=== PATIENT | male | born 1950 | race Caucasian/White ===

== ENCOUNTER 2023-11-08 12:04 | Emergency (ER) | payer MEDICARE, SELFPAY ==
[2023-11-08 12:10] VITALS: BP 172/92; PULSE 73; TEMP 36.7; O2SAT 94; BMI 31.3
--- NOTE | 2023-11-08 12:16 | ED_ITS ---
HPI - Wound/Laceration General Chief Complaint: Wound/Laceration Stated Complaint: FACIAL WOUND Time Seen by Provider: 11/08/23 12:08 Source: patient Mode of arrival: walk-in Limitations: no limitations History of Present Illness HPI narrative: 73-year-old male presents to the emergency department for a puncture wound to his face. This morning he was working with metal wiring and a piece that came up and punctured his left jaw, lateral to the mouth. He went to the urgent care center to get a tetanus shot but they told him they do not put stitches in the face and told him to come here. He does not think he needs stitches. No other injuries were sustained and he cannot recall the last time he had a tetanus shot, it has been a long time. He states that there is no chance that a piece of the metal broke off. Related Data Allergies Allergy/AdvReac Type Severity Reaction Status Date / Time No Known Drug Allergies Allergy Verified 11/08/23 12:14 Review of Systems ROS Narrative A ten point review of systems is negative except as noted above. Exam Narrative Exam Narrative: Nurses note and vital signs reviewed and patient is not hypoxic. General: The patient appears well and in no apparent distress. Patient is resting comfortably on cart. Skin: Warm, dry, no pallor noted. There is no rash noted. Head: Normocephalic, he has a puncture dez on his left jaw lateral and inferior to the corner of his mouth. There is no laceration. It is not a through and through wound. Eye: Normal conjunctiva, no drainage Ears, Nose, Mouth, and Throat: oral mucosa is moist. Nares patent. Cardiovascular: Regular Rate and Rhythm Respiratory: Patient is in no distress, no accessory muscle use Back: non-tender GI: Soft and nontender Musculoskeletal: All joints have full range of motion Neurological: Awake and alert Psychiatric: Cooperative Constitutional Vital Signs, click to edit/add: Last Vital Signs Temp 98.1 F 11/08/23 12:10 Pulse 73 11/08/23 12:10 Resp 16 11/08/23 12:10 BP 172/92 H 11/08/23 12:10 Pulse Ox 94 L 11/08/23 12:10 O2 Del Method Room Air 11/08/23 12:10 Course Vital Signs Vital signs: Vital Signs Temperature 98.1 F 11/08/23 12:10 Pulse Rate 73 11/08/23 12:10 Respiratory Rate 16 11/08/23 12:10 Blood Pressure 172/92 H 11/08/23 12:10 Pulse Oximetry 94 L 11/08/23 12:10 Oxygen Delivery Method Room Air 11/08/23 12:10 Temperature 98.1 F 11/08/23 12:10 Pulse Rate 73 11/08/23 12:10 Respiratory Rate 16 11/08/23 12:10 Blood Pressure 172/92 H 11/08/23 12:10 Pulse Oximetry 94 L 11/08/23 12:10 Oxygen Delivery Method Room Air 11/08/23 12:10 MDM - Wound/Laceration MDM Narrative Medical decision making narrative: Sutures are not indicated. Tetanus status was updated. Treatment diagnosis and follow-up were discussed with the patient Differential Diagnosis Differential diagnosis: Likely laceration, avulsion of skin and other (Puncture wound) Discharge Plan Discharge Stand Alone Forms: Portal Instructions Chief Complaint: Wound/Laceration Clinical Impression: Puncture wound Patient Disposition: Home, Self-Care Time of Disposition Decision: 12:16 Condition: Good Mode of Transportation: Private Vehicle Print Language: Vietnamese Instructions: Puncture Wound (ED)
[2023-11-08] MEDS: ADACEL DIPH,PERTUSS(ACELL),TET VAC/PF 0.5 ML ADULT SYRINGE IM (12:22)
[2023-11-08 12:29] VITALS: BP 162/88; PULSE 78; TEMP 36.7; O2SAT 94
== END 2023-11-08 12:30 | disposition home or self-care (01) ==
LOC: ER 12:36
PROVIDERS: Emergency Provider Emergency Medicine
DX: S01.83XA Puncture wound without foreign body of other part of head, initial encounter (principal); W26.8XXA Contact with other sharp object(s), not elsewhere classified, initial encounter; Z23 Encounter for immunization
CPT/HCPCS: 90471; 90715; 99284

== ENCOUNTER 2024-12-07 07:11 | Outpatient (OUT) | payer OTHER, SELFPAY ==
--- OUTSIDE RECORDS SUMMARY | 2024-12-07 07:17 | XMS_ITS | Patient Health Record ---
Author Organization [facility] Address [address] [place], [place] [address]Judith [place], [place] [id number] Care Team Providers Care Acute Specialist Name Role Phone JusticeThomas hargrove Unavailable [phone] Allergies No Known Allergies Reason For Referral No Information Social History Tobacco Use: Social History Observation Description Date Details (start date - stop date) Never Smoker NA - NA Sex Assigned At : Social History Observation Description Sex Assigned At Male Tobacco Control (Standard) Question Answer Notes Tobacco use: Nonsmoker Problems Problem Type SNOMED Code ICD Code Onset Dates Problem Status W/U Status Risk Notes Problem BMI 30+ - obesity (944597901) BMI 32.0-32.9,a dult (Z68.32) Active confirmed Vital Signs Heart Rate 58 /min 11/23/2024 Height-cm 170.18 cm 11/23/2024 Blood pressure diastolic 93 mm Hg 11/23/2024 Weight-kg 95.26 kg 11/23/2024 Height 5'7 in 11/23/2024 Blood pressure systolic 161 mm Hg 11/23/2024 Weight 210 lbs 11/23/2024 BMI 32.89 kg/m2 11/23/2024 Encounters Encounter Location Date Provider Diagnosis [facility] [address], [place] [id number] 11/15/2024 Thomas Collins Encounter for scre ening for dental disorders Z13.84 ; Dental caries into dentine K02.62 and Encounter for dental examination and cleaning with abnormal findings Z01.21 [facility] [address], [place] [id number] 11/23/2024 Thomas Collins BMI 32.0-32.9,adul t Z68.32 ; Encounter for dental examination and cleaning with abnormal findings Z01.21 ; Dietary counseling Z71.3 and Exercise counseling Z71.82 Assessments Encounter Date Diagnosis (ICD Code) Assessment Notes Treatment Notes Treatment Clinical Notes Section Notes 11/15/2024 Encounter for screening for dental disorders (ICD-10 - Z13.84) 11/23/2024 BMI 32.0-32.9,adult (ICD-10 - Z68.32) 11/15/2024 Dental caries into dentine (ICD-10 - K02.62) 11/23/2024 Encounter for dental examination and cleaning with abnormal findings (ICD-10 - Z01.21) 11/23/2024 Dietary counseling (ICD-10 - Z71.3) 11/15/2024 Encounter for dental examination and cleaning with abnormal findings (ICD-10 - Z01.21) 11/23/2024 Exercise counseling (ICD-10 - Z71.82) Plan Of Treatment Next Appt Details Provider Name:Thomas Collins , 01/29/2025 01:30:00 PM, [address] [place] [address], [phone], Provider Name:Thomas Collins , 06/18/2025 08:45:00 AM, [address] [place] [address], [id number], Insurance Providers Payer Name Payer Address Payer Phone Subscriber Number Group Number Insured Name Patient Relationship to Insured Coverage Start Date Coverage End Date [facility] [address] [place] [address] [id number] Genaro Mendoza Self - patient is the insured
--- OUTSIDE RECORDS SUMMARY | 2024-12-07 07:17 | XMS_ITS | Encounter Summary ---
Author Organization [employer] [facility] tem Address [facility] [id number] [address] [place] [address] Care Team Providers Care Metallurgical Engineering Teacher Name Role Phone Luis Alberto Yañez DO Primary Care Provider [phone] Reason for Visit * Reason Onset Date Comments Med Refill 10/26/2021 Genaro called to day to get refill of his meloxicam. He is staying at his Mom's and wants it to go to the [facility] [address] [facility]. It is the second pharmacy in his chart. Thank you. Encounter Details Date Type Department Care Team (Late st Contact Info) Description 10/26/2021 Telephone Regenerative Medicine Katia Vogel [address] [phone] Dianelys Solis MD [address], [address] [address] Med Refill (Genaro called today to get refill of his meloxicam. He is staying at his Mom's and wants it to go to the [facility] [address] [facility]. It is the second pharmacy in his chart. Thank you.) Social History Tobacco Use Types Packs/Day Years Used Date Smoking Tobacco: Former Smokeless Tobacco: Former Alcohol Use Standard Drinks/Week Comments Not Currently 0 (1 standard drink = 0.6 oz pur e alcohol) Social Social Connection and Isolation Panel [NHANES] A nswer Date Recorded In a typical week, how many times do you talk on the phone with family, friends, or neighbors? Three times a week 07/19/2021 How often do you get togethe r with friends or relatives? Patient declined 07/19/2021 Attends Confucianism Services Not on file 07/19 Do you belong to any clubs o r organizations such as anglican groups, unions, fraternal or athletic groups, or school groups? Yes 07/19/2021 Attends Club or Organization Meetings Not on shayne e 07/19/2021 Marital Status Not on file 07/19/2021 AUDIT-C Answer Date Recorded Q1: How often do you have a drink containing alc ohol? Patient declined 07/19/2021 Q2: How many drinks containi ng alcohol do you have on a typical day when you are drinking? Patient declined 07/19/2021 Q3: How often do you have si x or more drinks on one occasion? Patient declined 07/19/2021 PHQ-2 Answer Date Recorded Total Score 10 07/19/2021 Exercise Vital Sign Answer Date Recorde d On average, how many days pe r week do you engage in moderate to strenuous exercise (like a brisk walk)? 3 days Minutes of Exercise per Session Not on file 07/19/2021 Childcare Answer Date Recorded Childcare Unknown 10/17/2018 Employment Answer Date Recorded Employment Unknown 10/17/2018 Purpose - Life Answer Date Recorded I have a purpose and direction in my life. Lashellith er Agree nor Disagree 07/19/2021 Sex and Gender Information Value Date Recorded Sex Assigned at Not on file Legal Sex Male 11:23 AM EDT Gender Identity Not on file Sexual Orientation Not on file documented as of this encounter Miscellaneous Notes * Telephone Encounter - Dianelys Solis MD - 10/26/2021 12:40 PM EDT Refill sent. DIANELYS SOLIS MD documented in this encounter Plan of Treatment Not on file documented as of this encounter Visit Diagnoses Not on filedocumented in this encounter Additional Health Concerns Assessment Noted Time PHQ-9 Depression Total Score: 10 022 8:14 PM EDT documented as of this encounter Care Teams Metallurgical Engineering Teacher Relationship Specialty Start Date End Date Luis Alberto Yañez DO PCP - General Family Medicine 06/11/16 07/09/24 documented as of this encounter
--- OUTSIDE RECORDS SUMMARY | 2024-12-07 07:17 | XMS_ITS | Clinical Summary ---
Author Organization [facility] Address [facility] [id number] [address] [place] [address] Care Team Providers Care Insurance Representative Name Role Phone Unavailable Primary Care Provider Unavailabl e Allergies No known active allergies Medications ascorbic acid (VITAMIN C) 500 mg tablet Take 1 tablet (500 mg total) by mouth in the morning. Active UNABLE TO FIND Take by mouth in the morning. Balance of nature-fruit and vegetable supplement. Active calcium citrate (CALCITRATE) 200 mg (950 mg) tablet Take 1 tablet (200 mg total) by mouth in the morning. For bone health. Active UNABLE TO FIND Take by mouth in the morning. Immuno 150 basic minerals needs for health. Active Active Problems Problem Noted Date Diagnosed Date Primary osteoarthritis of left knee 05/20/2023 Benign prostatic hyperplasia 06/15/2016 Encounters Date Type Department Care Team Description 11/07/2024 11:15 AM EDT Office Visit [facility] [address] [place] [address] Re Santiago PA Fatigue, unspecified type (Primary Dx) 11/07/2024 Travel from Last 3 Months Immunizations Immunization Administration Dates Next Due COVID-19, mRNA, LNP-S, PF, 100mcg/0.5mL Dose 08/01/2020,07/04/2020 DTaP 10/14/2017 Influenza, High-dose, Quadrivalent 08/16/2023 Pneumococcal Conjugate 13-Valent 10/17/2017 Pneumococcal Polysaccharide 11/06/2019,0 11/27/2013(Deferred: Other - DEFERRED) Tdap 10/14/2017 Zoster Vaccine Recombinant 10/22/2023,07/29/2023 Family History Medical History Relation Name Comments Arthritis Brother Arthritis Mother BOTH KNEES REPL ACED Diabetes Mother prediabetes Heart disease Mother Anesthesia problems Neg Hx Relation Name Status Comments Brother Father Mother fro m complications of UTI Social History Tobacco Use Types Packs/Day Years Used Date Smoking Tobacco: Former Cigarettes Smokeless Tobacco: Former Chew Tobacco Cessation:Counseling Given: Yes Comments:Quit 30+ years ago Alcohol Use Standard Drinks/Week Comments Yes 0 (1 standard drink = 0.6 oz pur e alcohol) 2-5 per week according to A Social Connection and Isolation Panel [NHANES] A nswer Date Recorded In a typical week, how many times do you talk on the phone with family, friends, or neighbors? Three times a week 07/19/2021 How often do you get togethe r with friends or relatives? Patient declined 07/19/2021 Attends Roman Catholic Services Not on file 07/19 Do you belong to any clubs o r organizations such as jain groups, unions, fraternal or athletic groups, or [...] drinks on one occasion? Patient declined 07/19/2021 Overall Financial Resource Strain (CARDIA) Answe r Date Recorded How hard is it for you to pa y for the very basics like food, housing, medical care, and heating? Not hard at all 12/01/2023 PHQ-2 Answer Date Recorded Total Score 0 12/07/2023 Exercise Vital Sign Answer Date Recorde d On average, how many days pe r week do you engage in moderate to strenuous exercise (like a brisk walk)? 3 days Minutes of Exercise per Session Not on file 07/19/2021 PRAPARE - Transportation Answer Date Re corded In the past 12 months, has l ack of transportation kept you from medical appointments or from getting medications? No 11/07 In the past 12 months, has l ack of transportation kept you from meetings, work, or from getting things needed for daily living? No 12/01/2023 Housing Instability Answer Date Recorde d Are you worried or concerned that in the next two months you may not have stable housing that you own, rent or stay in as a part of a household? No 12/01/2023 Childcare Answer Date Recorded Childcare Unknown 10/17/2018 Employment Answer Date Recorded Employment Unknown 10/17/2018 Hunger Screening Answer Date Recorded Within the past 12 months we worried whether our food would run out before we got money to buy more. Never True 11/07/2024 Within the past 12 months th e food we bought just didn't last and we didn't have money to get more. Never True 11/07/2024 Purpose - Life Answer Date Recorded I have a purpose and direction in my life. Figueroa tee Agree nor Disagree 07/19/2021 Sex and Gender Information Value Date Recorded Sex Assigned at Not on file Legal Sex Male 11:23 AM EDT Gender Identity Not on file Sexual Orientation Not on file Last Filed Vital Signs Vital Sign Reading Time Taken Comments Blood Pressure 143/89 11/07/2024 11:30 AM EDT Pulse 61 11/07/2024 11:29 AM EDT Temperature 36.1 C (97 F) 11/07/2024 11:29 AM EDT Respiratory Rate 16 11/07/2024 11:29 AM EDT Oxygen Saturation 95% 11/07/2024 11:29 AM EDT Inhaled Oxygen Concentration - - Weight 97.5 kg (215 lb) 11/07/2024 11:29 AM EDT Height 170.2 cm (5' 7 ) 12/07/2023 10:16 AM EDT Body Mass Index 33.67 12/07/2023 10:16 AM EDT Plan of Treatment Health Maintenance Due Date Last Done Comments COVID-19 Vaccine (2023-06 5 season) 2024 07/29/2021, 08/01/2020, 07/04/2020 Fall Risk Screening 11/30/2024 12/01/2023 Medicare Annual Wellness Visit 12/04/2024 0 12/05/2023, 11/30/2022, 11/24/2021, Additional history exists Depression Screening 12/06/2024 12/07/2023 Influenza Vaccine 01/07/2025 08/16/2023 Tobacco Screening 11/07/2025 11/07/2024 DTaP,Tdap and Td Vaccines (3 - Td or Tdap) 10/15/2027 10/14/2017, 10/14/2017 Colonoscopy Discontinued 11/30/1999 Abdominal Aortic Aneurysm (A AA) Screen Completed 10/20/2017 Zoster (Shingles) Vaccine Completed 10/22/2023, Goals Goal Patient Goal Type Associated Problems Recent Progress Patient-Stated? Author improve mobility General Yes Teresa Avila, RN Note: Evaluation of progress towards goal: Maximize work with PT at discharge to strengthen L knee Medical Devices Implanted Type Area Financial Compliance Officer Device Identifier Shelf Expiration Date Model / Serial / Lot Cement Bn Bio 40gm Rpl [id number] - [id number] Implanted:Qt y: 1 on 07/05/2023 by Valente Carlos MD at [facility] Cement Left: Knee [employer] [id number] 11/05/2025 [id number] / / [id number] Cement Bn Bio 40gm Rpl [id number] - [id number] Implanted:Qt y: 1 on 07/05/2023 by Valente Carlos MD at [facility] Cement Left: Knee [employer] [id number] 11/05/2025 [id number] / / [id number] Component Ptlr 38mm Personcleo Edgardoflorinda Kn Strl Lf - [id number] Implanted:Qt y: 1 on 07/05/2023 by Valente Carlos MD at [facility] Orthopedic Implant Left: Knee [employer] [id number] 04/04/2028 [id number] / / [id number] Component Fem 9 Std Kn Lt Crcte Rtn Cmnt Persona Cocr - [id number] Implanted:Qt y: 1 on 07/05/2023 by Valente Carlos MD at [facility] Orthopedic Implant Left: Knee [employer] [id number] 02/26/2033 [id number] / / [id number] Insert Artc 8-11 G-H 10mm Kn Lt Vivacit-E Persona Strl - [id number] Implanted:Qt y: 1 on 07/05/2023 by Valente Carlos MD at [facility] Orthopedic Implant Left: Knee [employer] [id number] 04/11/2028 [id number] / / [id number] Baseplate Tib 5d G Kn Lt Cmnt Stm Persona Tiv Strl - [id number] Implanted:Qt y: 1 on 07/05/2023 by Valente Carlos MD at [facility] Plate Left: Knee [employer] [id number] 03/07/2033 [id number] / / [id number] Explanted Type Area Financial Compliance Officer Device Identifier Shelf Expiration Date Model / Serial / Lot Screw Bn 25mm 2.5mm F Hex Kn Persona - [id number] Explanted:Qty: 2 on 07/05/2023 by Valente Carlos MD at [facility] Screw Left: Knee [employer] [id number] 04/23/2033 [id number] / / [id number] Procedures Procedure Name Priority Date/Time Associated Diagnosis Comments PM AMB POCT GLUCOSE Routine 11/07/2024 4 :47 PM EDT Fatigue, unspecified type VASC AAA SCREENING Routine 10/20/2017 10 :00 AM EDT Screening for abdominal aortic aneurysm from Last 3 Months or Most Recently Relevant to Health Maintenance Results * POCT Glucose (11/07/2024 4:47 PM EDT) Bedside glucose 98 65 - 99 mg/dL MANUALLY TRANSCRIBED RESULTS Blood 11/07/2024 4:47 PM EDT Re LAI POINT OF CARE TEST ORDERABLES F inal Result MANUALLY TRANSCRIBED RESULTS * Vas AAA Screening (10/20/2017 10:00 AM EDT) Anatomical Region Laterality Modality Vascular N/A Ultrasound 10/20/2017 10:0 6 AM EDT Narrative 10/20/2017 6:51 PM EDT Aorta: Limited-AAA screening exam: Maximum aortic diameter is: 2.6 cm. Recommendations: Any questions prior to finalization, please call the reading physician during normal business hours at the phone number beside their name. Procedure Note Dieter Joseph MD - 10/20/2017 Aorta: Limited-AAA screening exam: Maximum aortic diameter is: 2.6 cm. Recommendations: Any questions prior to finalization, please call thereading physician during normal business hours at the phone number besidetheir name. Luis Alberto Yañez DO CV VASCULAR ORDERABLES Final Result from Last 3 Months or Most Recently Relevant to Health Maintenance [place] [address] [place] [address] MEDICARE Advance Directives Documents on File Type Date Recorded Patient Explosive Ordnance Disposal Manager Expl anation Living Will 12/07/2022 10:47 AM Living Maxwell l 09/16/22 Durable Power of Director Operations 12/07/2022 10:45 AM POA 09/16/22
--- OUTSIDE RECORDS SUMMARY | 2024-12-07 07:17 | XMS_ITS | Encounter Summary ---
Author Organization [facility] tem Address [id number] [address] [place] [address] Care Team Providers Care Fisher Clam Name Role Phone Luis Alberto Yañez DO Primary Care Provider [phone] Encounter Details Date Type Department Care Team (Late st Contact Info) Description 03/19/2020 Orders Only [facility] Family Medicine [address] [place] [address] [address] [place] [id number] Ref Prov, [place] [address] Social History Tobacco Use Types Packs/Day Years Used Date Smoking Tobacco: Former Smokeless Tobacco: Former Alcohol Use Standard Drinks/Week Comments Not Currently 0 (1 standard drink = 0.6 oz pur e alcohol) Social PHQ-2 Answer Date Recorded Total Score 1 11/06/2019 Childcare Answer Date Recorded Childcare Unknown 10/17/2018 Employment Answer Date Recorded Employment Unknown 10/17/2018 Sex and Gender Information Value Date Recorded Sex Assigned at Not on file Legal Sex Male 11:23 AM EDT Gender Identity Not on file Sexual Orientation Not on file documented as of this encounter Plan of Treatment Not on file documented as of this encounter Procedures Procedure Name Priority Date/Time Associated Diagnosis Comments SARS COV 2 (COVID-19) Routine 03/05/2020 documented in this encounter Results * SARS COV 2 (COVID-19) (03/05/2020) EXTERNAL SARS COV 2 Negative Negative MANUALLY TRANSCRIBED RESULTS 03/05/2020 us Not In System Ref Prov MICROBIOLOGY - GENERAL OR DERABLES Final Result MANUALLY TRANSCRIBED RESULTS documented in this encounter Visit Diagnoses Not on filedocumented in this encounter Additional Health Concerns Assessment Noted Time PHQ-9 Depression Total Score: 1 11/06/19 20 10:00 AM EDT documented as of this encounter Care Teams Fisher Clam Relationship Specialty Start Date End Date Luis Alberto Yañez DO PCP - General Family Medicine 06/11/16 07/09/24 documented as of this encounter
--- OUTSIDE RECORDS SUMMARY | 2024-12-07 07:17 | XMS_ITS | Encounter Summary ---
Author Organization [facility] tem Address [facility] [place] [id number] [address] [place] [address] Care Team Providers Care Sample Maker Hand Name Role Phone Luis Alberto Yañez DO Primary Care Provider [phone] Encounter Details Date Type Department Care Team (Late st Contact Info) Description 03/15/2022 Orders Only [facility] [address] [place] [phone] Gosbarby, Milly, TELEVISION REPAIR TEACHER Atypical mole Social History Tobacco Use Types Packs/Day Years Used Date Smoking Tobacco: Former Smokeless Tobacco: Former Alcohol Use Standard Drinks/Week Comments Not Currently 0 (1 standard drink = 0.6 oz pure alcohol) 2-5 drinks per week according to [facility] Social Connection and Isolation Panel [NHANES] A nswer Date Recorded In a typical week, how many times do you talk on the phone with family, friends, or neighbors? Three times a week 07/19/2021 How often do you get togethe r with friends or relatives? Patient declined 07/19/2021 Attends Buddhist Services Not on file 07/19 Do you belong to any clubs o r organizations such as muslim groups, unions, fraternal or athletic groups, or [...] PHQ-2 Answer Date Recorded Total Score 10 11/24/2021 Exercise Vital Sign Answer Date Recorde d [...] a purpose and direction in my life. Neith er Agree nor Disagree 07/19/2021 Sex and Gender Information Value Date Recorded Sex Assigned at Not on file Legal Sex Male 11:23 AM EDT Gender Identity Not on file Sexual Orientation Not on file documented as of this encounter Plan of Treatment Not on file documented as of this encounter Procedures Procedure Name Priority Date/Time Associated Diagnosis Comments AMB REFERRAL TO DERMATOLOGY Routine 03/05/2022 Atypical mole documented in this encounter Results * Ambulatory referral to Dermatology (03/05/2022) 03/05/2022 us Halle Horta DRYERMAN/WOMAN-MENSWEAR SALESPERSON OUTPATIENT REFERRAL ORD ERABLES Final Result MANUALLY TRANSCRIBED RESULTS documented in this encounter Visit Diagnoses Diagnosis Atypical mole Benign neoplasm of skin, site unspecified documented in this encounter Additional Health Concerns Assessment Noted Time PHQ-9 Depression Total Score: 10 022 10:00 AM EDT documented as of this encounter Care Teams Sample Maker Hand Relationship Specialty Start Date End Date Luis Alberto Yañez DO PCP - General Family Medicine 06/11/16 07/09/24 documented as of this encounter
--- OUTSIDE RECORDS SUMMARY | 2024-12-07 07:17 | XMS_ITS | Encounter Summary ---
[facility] [id number] [address] [place] [address] Care Team Providers Care Key Account Director Name Role Phone Luis Alberto Yañez Alisson YATES Primary Care Provider [phone] Encounter Details Date Type Department Care Team (Late st Contact Info) Description 10/26/2021 [facility] [address] [place] [address] Folra Weathers CMA Social History Tobacco Use Types Packs/Day Years [...] friends or relatives? Patient declined 07/19/2021 Attends Congregational Services Not on file 07/19 Do you belong to any clubs o r organizations such as anabaptist groups, unions, fraternal or athletic groups, or [...] documented as of this encounter Care Teams Key Account Director Relationship Specialty Start Date End Date Luis Alberto Yañez DO PCP - General Family Medicine 06/11/16 07/09/24 documented as of this encounter
[2024-12-07 07:30] LABS: Hematocrit 46.9 % (42.0-54.0); Hemoglobin 15.8 g/dL (14.0-18.0); Immature Granulocytes Abs Auto 0.03 10^3/uL (0.00-0.03); Immature Granulocytes Pct Auto 0.4 % (0.0-0.5); Lymphocytes Absolute Auto 3.2 10^3/uL (1.2-3.8); Mean Corpuscular HGB Conc 33.7 g/dL (29.9-35.2); Mean Corpuscular Hemoglobin 31.2 pg (25.9-34.0); Mean Corpuscular Volume 92.5 fL (80.0-94.0); Platelet Count 271 10^3/uL (150-450); Red Blood Count 5.07 10^6/uL (4.70-6.10); White Blood Count 8.2 10^3/uL (4.0-11.0)
[2024-12-07 07:59] LABS: Alanine Aminotransferase 37 U/L (16-63); Albumin Globulin Ratio 1.1; Albumin Level 4.2 g/dL (3.4-5.0); Alkaline Phosphatase 62 U/L (46-116); Anion Gap 11.7; Aspartate Amino Transferase 23 U/L (15-37); Blood Urea Nitrogen 18.0 mg/dL (7.0-18.0); Calcium 9.6 mg/dL (8.5-10.1); Carbon Dioxide 31.3 mmol/L (21.0-32.0); Chloride 103 mmol/L (98-107); Cholesterol 224 mg/dL (<=200); Estimated GFR (African America >60 (>=60 mL/min/1.73m^2); Estimated GFR (Non-African Ame >60 (>=60 mL/min/1.73m^2); Globulin 3.7 g/dL; Glucose 122 mg/dL (74-106); HDL Cholesterol 44 mg/dL (40-60); Potassium 5.0 mmol/L (3.5-5.1); Sodium 141 mmol/L (136-145); Thyroid Stimulating Hormone 5.212 uIU/mL (0.358-3.740); Total Protein 7.9 g/dL (6.4-8.2); Triglycerides 137 mg/dL (<=150); VLDL CHOLESTEROL 27.4 mg/dL
[2024-12-07 08:34] LABS: Glucose Urine UA NEGATIVE (NEGATIVE)
== END 2024-12-07 07:12 | disposition home or self-care (01) ==
LOC: LAB 07:15
PROVIDERS: PCP Nurse Practitioner; Visit Provider Nurse Practitioner
DX: R00.2 Palpitations (principal); E78.2 Mixed hyperlipidemia; Z12.5 Encounter for screening for malignant neoplasm of prostate; N40.0 Benign prostatic hyperplasia without lower urinary tract symptoms; R03.0 Elevated blood-pressure reading, without diagnosis of hypertension
CPT/HCPCS: 36415; 80053; 80061; 81003; 82043; 82570; 84443; 85025; G0103

== ENCOUNTER 2025-01-10 08:12 | Outpatient (OUT) | payer OTHER, SELFPAY ==
[2025-01-10 09:08] LABS: Thyroid Stimulating Hormone 3.337 uIU/mL (0.358-3.740)
== END 2025-01-10 08:13 | disposition home or self-care (01) ==
LOC: LAB 08:13
PROVIDERS: PCP Nurse Practitioner; Visit Provider Nurse Practitioner
DX: R73.09 Other abnormal glucose (principal); R79.89 Other specified abnormal findings of blood chemistry
CPT/HCPCS: 36415; 83036; 84439; 84443